=== PATIENT | male | born 1955 | race African-American/Black ===

== ENCOUNTER → 2019-09-17 | Outpatient (CLI) | payer MEDICARE ==
--- NOTE | 2019-09-17 09:57 | Diagnostic Imaging Report ---
Exam: KUB - 2 views Indication: Renal calculus Comparison: None Findings: No radiographically apparent renal calculi. Calcific densities in the pelvis, likely phleboliths. Surgical clips in the right and left pelvis. Nonobstructive bowel gas pattern. No free air. No acute osseous injury. Impression: No radiographically apparent renal calculi. Calcific densities in the pelvis, most likely phleboliths. Signed by: Carlyn Bansal MD on 09/17/2019 9:54 AM
== END ==
LOC: RAD 09:17
PROVIDERS: ATTEND Urology
DX: N20.0 Calculus of kidney (principal)
CPT/HCPCS: 74018